=== PATIENT | female | born 2000 | race Caucasian/White ===

== ENCOUNTER 2025-09-15 21:14 | Emergency (ER) | payer OTHER ==
[2025-09-15 21:48] LABS: #Basophils 0.1 thou/uL (0.0-0.2); #Eosinophils 0.6 thou/uL (0.0-0.7); #Lymphocytes 1.9 thou/uL (1.20-3.40); #Monocytes 0.8 thou/uL (0.11-0.59); #Neutrophils 9.1 thou/uL (1.40-6.50); %Basophils 0.6 % (0.0-1.0); %Eosinophils 4.6 % (0.0-10.0); %Lymphocytes 15.0 % (21.0-51.0); %Monocytes 6.2 % (0.0-10.0); %Neutrophils 73.7 % (42.0-75.0); Hematocrit 43.5 % (36.0-47.0); Hemoglobin 13.8 g/dL (12.0-16.0); Mean Corpuscular Hemoglobin 25.6 pg (27.0-31.0); Mean Corpuscular Volume 80.4 fl (78.0-98.0); Platelet Count 341 10x3/uL (130-400); Red Blood Cell (RBC) Count 5.40 mill/uL (4.20-5.40); White Blood Cell (WBC) Count 12.3 10x3/uL (4.8-10.8)
[2025-09-15 22:06] LABS: Troponin I 0.015 ng/mL (< 0.028)
[2025-09-15] MEDS ORDERED: Ondansetron PF 4 MG/2 ML Vial ONE (22:14)
[2025-09-15 22:50] LABS: Carbon Dioxide 20 mmol/L (22-29); Chloride 109 mmol/L (98-107); Potassium 3.9 mmol/L (3.5-5.1); Sodium 140 mmol/L (136-145)
[2025-09-15 22:51] LABS: Albumin 3.8 g/dL (3.1-4.5); BUN (Urea Nitrogen) 9 mg/dL (7.0-18.7); Bilirubin, Total 0.3 mg/dL (0.3-1.2); Calc. Creatinine Clearance 0 mL/min (70-130); Calcium 9.1 mg/dL (7.8-10.44); Globulin 3.4 g/dL (2.4-3.5); Glucose 105 mg/dL (70-105)
[2025-09-15 22:52] LABS: ALT (SGPT) 15 U/L (Less than 34); AST (SGOT) 19 U/L (11-34); Alkaline Phosphatase 41 U/L (40-110); Anion Gap 15 mmol/L (10-20)
== END 2025-09-16 01:20 | disposition home or self-care (01) ==
LOC: BURERS 21:14
DX: F41.9 Anxiety disorder, unspecified (principal); R07.9 Chest pain, unspecified; R29.700 NIHSS score 0; I10 Essential (primary) hypertension
CPT/HCPCS: 36415; 71046; 80053; 84443; 84484; 85025; 93005; J2060; J2405; J2550